=== PATIENT | female | born 1955 | race Caucasian/White ===

== ENCOUNTER → 2018-04-10 01:18 | Outpatient (CLI) | payer OTHER, SELFPAY ==
--- NOTE | 2018-04-10 10:10 | DI.REPORT_ITS ---
SYMPTOM/DIAGNOSIS: SCREENING FOR BREAST CANCER Z12.39 BILATERAL SCREENING MAMMOGRAM: Mammograms were interpreted according to the usual protocol including computer analysis with CAD system, tomosynthesis and C view imaging. Comparison is made with exams from 2012 through 2017. The breasts are composed of heterogeneously dense fibroglandular tissue, breast density category C. No suspicious masses or suspicious microcalcifications are seen. There has been no significant change. IMPRESSION: Category 1-C, negative mammogram. Yearly screening mammography is recommended. [facility] ASSESSMENT OF FINDINGS: Negative. Category 1. Patient will receive a letter notifying them of these results. Bi-RADS category C. The breasts are heterogeneously dense, which may obscure small masses.
== END ==
PROVIDERS: PCP Nurse Practitioner; Visit Provider Nurse Practitioner
DX: Z12.31 Encounter for screening mammogram for malignant neoplasm of breast (principal)
CPT/HCPCS: 77063; 77067

== ENCOUNTER → 2018-04-19 10:43 | Outpatient (REF) | payer OTHER, SELFPAY ==
--- NOTE | 2018-04-19 10:00 | ENDOMET_PTH ---
PATIENT: MAYELIN LEIGH LOC: [facility] U#:[id number] AGE/SX: 69/F ROOM: RE04/19/[address]: Charissa Colon NP : 1955 BED: DIS: SPEC #: [id number] RECD: 04/19/18 12:37 STATUS: TERESITA ROMAN #: [id number] ABBY: 04/19/18 10:[address]: Darlene ALONSO,Charissa DEPT: Surgical Specimen RECD BY: Tenisha Parker ENTERED: 04/19/18 12:38 SP TYPE: Endomet OTHR DR: Mary Kate Chatterjee Tissues: 1 - ENDOMETRIUM BX/ANNIETTE Procedures: GROSS AND MICRO LEVEL 4 Comments: [id number]
[2018-04-20 13:54] LABS: Chlamydia Result Negative; GC Result Negative; Specimen Description CERVIX
== END ==
LOC: LBN 10:43
PROVIDERS: PCP Nurse Practitioner; Visit Provider Nurse Practitioner Women's Health
DX: R10.9 Unspecified abdominal pain (principal); R31.9 Hematuria, unspecified; Z11.3 Encounter for screening for infections with a predominantly sexual mode of transmission; N95.0 Postmenopausal bleeding; N85.8 Other specified noninflammatory disorders of uterus
CPT/HCPCS: 87077; 87491; 87591; 88305; 87086; 87186

== ENCOUNTER 2018-04-27 08:41 | Emergency (ER) | payer OTHER, SELFPAY ==
[2018-04-27] VITALS (30 sets, daily range): BP systolic 118–133; BP diastolic 70–92; PULSE 67–94; RESP 8–22; TEMP 36.8–36.9; O2SAT 96–99
[2018-04-27] MEDS: Normal Saline Flush 10 ML SYR IVP (09:40)
[2018-04-27 09:58] LABS: Bilirubin Negative (Negative); Blood Large (Negative); Clarity Cloudy; Glucose Negative (Negative); Ketones Trace mg/dL (Negative); Leukocyte Esterase Negative (Negative); Nitrite Negative (Negative); Urobilinogen 0.2 EU/dL (Up TO 0.2); pH 6.5 (5-8)
[2018-04-27 09:59] LABS: HCT 42.7 % (36.0-46.0); HGB 14.5 g/dL (12.0-15.5); Mean Corpuscular Hemoglobin 32.4 pg (27.0-33.0); Mean Corpuscular Volume 95.5 fL (80-95); Mean Platelet Volume 9.2 fL (8.0-11.0); Platelet Count 262 x1000/uL (130-400); RBC 4.47 m/cumm (4.00-5.20); RBC Distribution Width 12.4 % (11.7-14.6); White Blood Cell Count 8.26 k/cumm (4.4-10.8)
[2018-04-27 10:03] LABS: BUN 11 mg/dL (7-18); CREATININE 0.65 mg/dL (0.55-1.02); Calcium 9.1 mg/dL (8.5-10.1); Chloride 106 mmol/L (98-107); Glucose 93 mg/dL (70-100); Potassium 3.5 mmol/L (3.5-5.1); Sodium 139 mmol/L (136-145)
[2018-04-27 10:04] LABS: Anion Gap 7.6 mmol/L (3-11); CO2 25.4 mmol/L (21.0-32.0)
[2018-04-27 10:17] LABS: RBC >50 (0-2); WBC Negative HPF (0-5)
[2018-04-27 10:18] LABS: Bacteria Negative HPF (Negative); Casts Negative LPF (Negative); Crystals Negative HPF (Negative); Epithelial Cells Negative HPF (Negative); Mucus Negative (Negative); Other Cells Negative (Negative)
[2018-04-27 10:23] LABS: C & S Indicated? No
--- NOTE | 2018-04-27 10:38 | DI.CT_ITS ---
SYMPTOMS/DIAGNOSIS: LT FLANK PAIN, HEMATURIA CT OF THE ABDOMEN AND PELVIS: Comparison is made with noncontrast CT dated . Images were performed from the lung bases through the ischial tuberosities after IV contrast. There is a tiny nonobstructing stone seen in the mid left kidney. There are several small renal cysts. There is no evidence of hydronephrosis of either kidney. No renal masses are identified. There is a mass in the left side of the bladder posteriorly measuring 2.2 cm in diameter. It is located lateral to the ureterovesical junction. No additional bladder abnormalities are seen. There is no bladder wall thickening. The uterus and ovaries appear normal. The lung bases are clear. The heart size is normal. The liver, gallbladder, spleen, adrenals and pancreas appear normal. The aorta shows mild calcification and is normal in diameter. There are mild degenerative changes of the lumbar spine. IMPRESSION: 2.2 cm mass of the left side of the bladder. No evidence of hydronephrosis. A tiny nonobstructing left renal stone as well as left renal cysts are identified.
--- NOTE | 2018-04-27 10:54 | NUR.NOTE ---
Nursing Note: Escorted to CT by Tech at 1055, via stretcher.
[2018-04-27] MEDS: Omnipaque 350 MG/ML 100 ML BTL IJ (11:10)
--- NOTE | 2018-04-27 11:16 | ED.GENADUL_ITS ---
Discharge Plan Discharge Details Chief Complaint: Urinary Clinical Impression: Bladder mass, Hematuria Primary Care Provider: Mary Kate Chatterjee ED Provider: Ingris Capone Disposition Patient Disposition: HOME Condition: Stable Home Meds and New Rx's Prescriptions: Continue ascorbic acid (vitamin C) [Vitamin C] 500 MG capsule, extended release 500 mg PO DAILY RF: 0 calcium carbonate-vitamin D3 1 EACH tablet 1 ea PO DAILY RF: 0 Atorvastatin Calcium 20 MG tablet 20 mg PO DAILY RF: 0 Discontinued aspirin [Aspir-81] 81 MG tablet,delayed release (DR/EC) 81 mg PO DAILY RF: 0 ciprofloxacin HCl [Cipro] 500 MG tablet 500 mg PO Q12H 7 Days Qty: 14 RF: 0 Discharge Instructions Instructions: Hematuria (ED) Additional Instructions: You should receive a call from urology within the next 24 hours regarding a follow-up appointment with urologist Dr. Porras next week. If you do not receive a call from urology by tomorrow afternoon, called the urology clinic at [phone]. Stop taking your aspirin and Cipro. Return to the emergency department any worsening or new concerning symptoms. Referrals: Oscar Porras MD [ [facility]IC[facility]] - (If you do not hear from urology by tomorrow afternoon, call the urology clinic [phone]) Discharge Data Discharge Physician: Ingris Capone Medical Decision Making MDM Narrative Medical decision making narrative: 62-year-old female history of hyperlipidemia and tobacco abuse who presents with hematuria with clots and burning left-sided flank pain ?9 days. [facility] had [facility] patient for the symptoms over the past week and initially had thought possibly postmenopausal bleeding and patient had an endometrial biopsy which was negative and ultimately the presumptive diagnosis was more likely urinary. She was also diagnosed with the [facility]TI by [facility] and was started on Cipro of which she has 1 day left. Patient was seen at [facility] ER last week for same and had a noncontrast CT which was negative. Vitals within normal limits. Abdomen soft and nontender. No CVA tenderness. Her main concern would be with patient's smoking history and hematuria, possible mass. Will repeat labs, urinalysis and a CT abdomen and pelvis with contrast for further evaluation. Patient is agreeable to plan. 1118 --CT abdomen and pelvis notes a 2 cm mass in the left bladder. Main concern would be a possible TCC. Will call urology for recommendations. Labs reviewed and large blood noted in urine but otherwise labs unremarkable. 1125 --discussed with Dr. Porras -patient will need a cystoscopy and possible resection. Recommend holding aspirin for 3 days. Patient can be discharged home and follow-up with urology next week. If she does not hear from urology by tomorrow, she can call them at the urology clinic [phone]. Lab results and urology discussed with Dr. Porras he agrees to stop her Cipro. Patient was informed of plan. She was informed to stop her aspirin and Cipro. Patient was instructed to return to the emergency department with any worsening or new concerning symptoms. Lab Data Lab Results 04/27/18 04/27/18 04/27/18 Range/Units 09:35 09:40 09:40 WBC 8.26 (4.4-10.8) k/cumm RBC 4.47 (4.00-5.20) m/cumm Hgb 14.5 (12.0-15.5) g/dL Hct 42.7 (36.0-46.0) % MCV 95.5 H (80-95) fL MCH 32.4 (27.0-33.0) pg MCHC 34.0 (32.0-36.0) g/dL RDW 12.4 (11.7-14.6) % Plt Count 262 (130-400) x1000/uL MPV 9.2 (8.0-11.0) fL Sodium 139 (136-145) mmol/L Potassium 3.5 (3.5-5.1) mmol/L Chloride 106 (98-107) mmol/L Carbon Dioxide 25.4 (21.0-32.0) mmol/L Anion Gap 7.6 (3-11) mmol/L BUN 11 (7-18) mg/dL Creatinine 0.65 (0.55-1.02) mg/dL Estimated GFR/1.73 m2 >= 60.00 (mL/min/1.73m2) Glucose 93 (70-100) mg/dL Calcium 9.1 (8.5-10.1) mg/dL Urine Color Red (Yellow) Urine Clarity Cloudy Urine pH 6.5 (5-8) Ur Specific Dale 1.010 (1.005-1.025) Urine Protein 100 H (Negative) mg/dL Urine Ketones Trace H (Negative) mg/dL Urine Blood Large H (Negative) Urine Nitrite Negative (Negative) Urine Bilirubin Negative (Negative) Urine Urobilinogen 0.2 (Up TO 0.2) EU/dL Ur Leukocyte Esterase Negative (Negative) Urine RBC >50 H (0-2) Urine WBC Negative (0-5) HPF Ur Epithelial Cells Negative (Negative) HPF Urine Crystals Negative (Negative) HPF Urine Bacteria Negative (Negative) HPF Urine Casts Negative (Negative) LPF Urine Mucus Negative (Negative) Urine Other Negative (Negative) Ur Culture Indicated? No Urine Glucose Negative (Negative) mg/dL HPI - General Adult General Mode of arrival: ambulatory . Date/Time Provider Initiated Documentation: 04/27/18 09:47 . Limitations to Documentation: no limitations . Information obtained by: patient . HPI Narrative: Patient is a 62year-old female history of hyperlipidemia and tobacco abuse who presents for hematuria with clots and burning left-sided flank pain for the past 9 days. Patient had [facility] been [facility] by [facility] throat was thought to be postmenopausal bleeding. She had an endometrial biopsy in the past week which was negative. Benita from [facility] came down to see patient here today and stated that she mainly thinks her problem is urinary. Patient was also seen at [place] ED 1 week ago for same complaint and had a CT abdomen and pelvis which was negative. Patient denies any vaginal or rectal bleeding. She states she has been noting bright red blood with clots in her urine. She denies dysuria, frequency or urgency. She denies fever or vomiting. She confirms that she does not have vaginal bleeding as she noted blood in her urine today and did a digital vaginal exam and there is no blood. Related Data Home Medications Medication Instructions Recorded Confirmed ascorbic acid (vitamin C) [Vitamin 500 mg PO DAILY 02/28/17 04/27/18 C] calcium carbonate-vitamin D3 1 ea PO DAILY 02/28/17 04/27/18 Atorvastatin Calcium 20 mg PO DAILY tab-cap 04/19/18 04/27/18 Allergies Allergy/AdvReac Type Severity Reaction Status Date / Time morphine AdvReac Intermediate Nausea Unverified 04/27/18 09:01 Sulfa (Sulfonamide AdvReac Intermediate Bloating Unverified 04/27/18 09:01 Antibiotics) General Stated Complaint: Urinary ANN MARIE: 3 Review of Systems Constitutional Denies fever(s), Denies lethargy and Denies weakness Eyes Patient Denies blurry vision ENT Denies sore throat and Denies throat swelling Cardiovascular Denies syncope, Denies edema and Denies dyspnea Respiratory Denies cough, Denies pain on inspiration, Denies pain with cough and Denies dyspnea Gastrointestinal Reports abdominal pain, Denies diarrhea, Reports nausea and Denies vomiting Genitourinary Denies abnormal vaginal bleeding, Reports hematuria, Denies urinary frequency, Denies dysuria, Reports flank pain (Left sided), Denies urinary incontinence, Denies urinary hesitancy, Denies urinary urgency and Denies vaginal discharge Musculoskeletal Denies back pain and Denies arthralgias Neurologic Denies confusion, Denies syncope and Denies weakness Psychiatric Denies confusion Allergic/Immunologic Denies throat swelling PFSH Social History Smoking/Tobacco Use Status: Current every day Exam Const General: cooperative and comfortable Orientation: alert and awake HENMT Head: normal to inspection General nose exam: external nose normal Face and sinus: normal facial exam Eyes Pupils: PERRL EOM: EOM intact bilaterally Neck Neck: normal visual inspection Resp Effort & Inspection: normal respiratory effort Auscultation: clear to auscultation bilaterally Cardio Rate: regular rate Rhythm: regular rhythm GI Inspection: normal to inspection Palpation: soft, no guarding, no hepatomegaly, no masses, no pulsatile masses, not rigid and nontender External Female Exam: no lesions Back/Spine/Pelvis Back: no CVA tenderness Skin General skin exam: no rashes or lesions noted Neuro General: alert and awake Extrem General: normal to inspection and no edema Psych Affect: normal affect Course Vital Signs Temperature 98.2 F 04/27/18 08:49 Pulse 82 04/27/18 08:49 Respiratory Rate 13 04/27/18 08:49 Blood Pressure 121/86 04/27/18 08:49 Pulse Oximetry 98 04/27/18 08:49 Temperature 98.2 F 04/27/18 08:49 Pulse 84 04/27/18 10:30 Respiratory Rate 13 04/27/18 10:31 Blood Pressure 132/87 04/27/18 10:30 Pulse Oximetry 96 04/27/18 10:31 Lab/Test Results Lab/Test Results: Laboratory Tests 04/27/18 04/27/18 04/27/18 09:35 09:40 09:40 WBC 8.26 RBC 4.47 Hgb 14.5 Hct 42.7 MCV 95.5 H MCH 32.4 MCHC 34.0 RDW 12.4 Plt Count 262 MPV 9.2 Sodium 139 Potassium 3.5 Chloride 106 Carbon Dioxide 25.4 Anion Gap 7.6 BUN 11 Creatinine 0.65 Estimated GFR/1.73 m2 >= 60.00 Glucose 93 Calcium 9.1 Urine Color Red Urine Clarity Cloudy Urine pH 6.5 Ur Specific Dale 1.010 Urine Protein 100 H Urine Ketones Trace H Urine Blood Large H Urine Nitrite Negative Urine Bilirubin Negative Urine Urobilinogen 0.2 Ur Leukocyte Esterase Negative Urine RBC >50 H Urine WBC Negative Ur Epithelial Cells Negative Urine Crystals Negative Urine Bacteria Negative Urine Casts Negative Urine Mucus Negative Urine Other Negative Ur Culture Indicated? No Urine Glucose Negative
--- NOTE | 2018-04-27 11:19 | NUR.NOTE ---
Nursing Note: Return to ER,from CT, with escort by Tech.
[2018-04-27] MEDS: Normal Saline 1,000 ML 1000 ML IV (11:20)
[2018-04-27] MEDS: Ketorolac 30 MG/ML VIAL IVP (11:28)
== END 2018-04-27 12:52 | disposition home or self-care (01) ==
PROVIDERS: Emergency Provider Physician Assistant; PCP Nurse Practitioner
DX: N32.89 Other specified disorders of bladder (principal); R31.0 Gross hematuria; F17.210 Nicotine dependence, cigarettes, uncomplicated
CPT/HCPCS: 36415; 80048; 85027; 96361; 96374; 99285; 74177; 81003; 81015; J1885; J3490

== ENCOUNTER 2018-05-01 13:03 | PSDC | payer OTHER, SELFPAY ==
[2018-05-01 13:15] VITALS: BP 133/84; PULSE 86; RESP 17; TEMP 36.4; O2SAT 98
[2018-05-01] MEDS: Lactated Ringers 1,000 ML 80 ML IV (13:52)
[2018-05-01] MEDS: Lidocaine 2% Jelly 6 ML SYR (14:42)
--- NOTE | 2018-05-01 14:54 | BLADDER_PTH ---
PATIENT: MAYELIN LEIGH LOC: [facility] U#:[id number] AGE/SX: 62/F ROOM: RE05/01/[address]: Oscar Porras MD : 1955 BED: DIS: 05/01/2018 SPEC #: [id number] RECD: 05/01/18 18:43 STATUS: TERESITA REQ #: [id number] ABBY: 05/01/18 14:[address]: Oscar Porras DEPT: Surgical Specimen RECD BY: Tenisha Parker ENTERED: 05/01/18 18:44 SP TYPE: Bladder OTHR DR: Mary Kate Chatterjee Tissues: 1 - BLADDER CURRETTINGS Procedures: GROSS AND MICRO LEVEL 5 Comments: [id number]
--- NOTE | 2018-05-01 15:10 | W.PM.DSUDISC ---
Discharge Plan Disposition Patient Disposition: HOME Discharge Details Reason For Visit: BLADDER MASS Attending Provider: Oscar Porras Primary Care Provider: Mary Kate Chatterjee Home Meds and New Rx's Prescriptions: No Action ascorbic acid (vitamin C) [Vitamin C] 500 MG capsule, extended release 500 mg PO DAILY RF: 0 Atorvastatin Calcium 20 MG tablet 20 mg PO DAILY RF: 0 Discharge Instructions Instructions: Urinary Leg Bag (GEN), Cleveland Catheter Placement and Care (DC) Additional Instructions: Cleveland to leg bag for @ 5 days Followup Tuesday or Tuesday for catheter removal and pathology results OK to shower with catheter in place Activity:: no lifting over 10 pounds for 1 week Discharge Data Discharge Physician: Oscar Porras
--- NOTE | 2018-05-01 15:14 | W.PM.DSUDISC ---
Discharge Plan Disposition Patient Disposition: HOME Condition: Stable Discharge Details Reason For Visit: BLADDER MASS Attending Provider: Oscar Porras Primary Care Provider: Mary Kate Chatterjee Home Meds and New Rx's Prescriptions: New tramadol 50 mg tablet 50 mg PO Q6H PRN (Reason: pain) Qty: 20 RF: 0 oxybutynin chloride 5 mg tablet 5 mg PO TID PRN (Reason: spasm) Qty: 14 RF: 0 Continue ascorbic acid (vitamin C) [Vitamin C] 500 MG capsule, extended release 500 mg PO DAILY RF: 0 Atorvastatin Calcium 20 MG tablet 20 mg PO DAILY RF: 0 Discharge Instructions Instructions: Cleveland Catheter Placement and Care (DC), Urinary Leg Bag (GEN) Additional Instructions: Cleveland to leg bag for @ 5 days Followup Tuesday or Tuesday for catheter removal and pathology results OK to shower with catheter in place Activity:: lifting over 10 pounds for 1 week Diet:: no restrictions Discharge Data Discharge Physician: Oscar Porras
[2018-05-01 15:35] VITALS: BP 138/86; PULSE 76; RESP 16; TEMP 37.3; O2SAT 97
[2018-05-01] MEDS: Oxybutynin 5 MG TAB PO (15:38)
[2018-05-01] MEDS: Phenazopyridine 200 MG TAB PO (15:38)
[2018-05-01] MEDS: traMADol 50 MG TAB PO (15:38)
--- NOTE | 2018-05-01 16:10 | ROE_ITS ---
DATE OF PROCEDURE: May 01, 2018 PREOPERATIVE DIAGNOSIS: Bladder mass. POSTOPERATIVE DIAGNOSIS: Same with pathology pending. PROCEDURE: Cystoscopy, clot evacuation, transurethral resection of bladder tumor. SURGEON: Oscar Porras M.D. ANESTHESIA: Monitored Anesthesia Care with local. COMPLICATIONS: None. HISTORY: This is a 62-year-old woman who has had intermitted gross hematuria with clots over the pas t few weeks. Initially she was found to have enterococcus in her urine so she was treated for a UTI. She continued to have bleeding so she had a CT scan with contrast, which demonstrated a mass in the left side of her bladder. She presents now for transurethral resection. OPERATIVE REPORT: The patient was brought to the operating room on 05/01/18. After being given monit ored anesthesia care she was placed in the dorsal lithotomy position. Her genitalia was prepped and draped. 2% Xylocaine jelly was instilled into the urethra to act as a local anesthetic. A 24 Lithuanian resectoscope sheath was passed through the urethra into the bladder. The bladder was ins pected with the 30-degree lens. There was a large amount of clot within the bladder on initial passage of the scope. These clots wer e evacuated. We were then able to get a good view of the remainder of the bladder. Just behind the left ureteral orifice there was a papillary lesion consistent with a bladder tumor. This lesion appeared to be attached to the mucosa by a narrow stalk. It was not broad-based. Using bipolar cautery we resected the visible tumor and sent it for pathology. The base of the tumor was cauterized using the coagulation current. A small abnormality was seen on the right side just b ehind the ureteral orifice. This area did not appear as papillary as the left-sided lesion, but we w ent ahead and took a transurethral biopsy of this area as well. Because of the depth of our resection, we elected not to instill mitomycin-C into the bladder. We pl aced a 16 Lithuanian Cleveland catheter through the urethra into the bladder. The catheter balloon was infla guerrero with 10 cc's of sterile water and the catheter was hooked to gravity drainage. She tolerated this procedure well with no complications.
[2018-05-01 16:18] VITALS: BP 112/76; PULSE 82; RESP 16; TEMP 37.4; O2SAT 98
== END 2018-05-01 16:50 | disposition home or self-care (01) ==
PROVIDERS: PCP Nurse Practitioner; Visit Provider Urology
PROC: 0TBB8ZZ Excision of Bladder, Via Natural or Artificial Opening Endoscopic (ICD-10-PCS; CPT 51720; principal; 2018-05-01 15:00)
DX: C67.6 Malignant neoplasm of ureteric orifice (principal); R31.0 Gross hematuria
CPT/HCPCS: 51720; 52234; 88307; J0690; J1100; J1885; J2250; J2405; J3010

== ENCOUNTER 2018-06-07 15:55 | Outpatient (REF) | payer OTHER, SELFPAY ==
--- NOTE | 2018-06-07 15:35 | PAPFT_PTH ---
PATIENT: MAYELIN LEIGH LOC: [facility] U#:[id number] AGE/SX: 62/F ROOM: RE06/07/[address]: Charissa Colon NP : 1955 BED: DIS: 06/07/2018 SPEC #: [id number] RECD: 06/07/18 18:05 STATUS: TERESITA ROMAN #: [id number] ABBY: 06/07/18 15:[address]: Charissa Colon NP DEPT: [facility] Cytology RECD BY: Tenisha Parker ENTERED: 06/07/18 18:06 SP TYPE: PAPFT OTHR DR: Mary Kate Chatterjee Tissues: 1 - CX/ENDOCX FOR PAP SMEARS Procedures: PAP THIN PREP/UVM Screening HPV DNA PROBE Comments: [id number]
== END 2018-06-07 16:15 ==
LOC: LBN 15:55
PROVIDERS: PCP Nurse Practitioner; Visit Provider Nurse Practitioner Women's Health
DX: Z12.4 Encounter for screening for malignant neoplasm of cervix (principal); Z11.51 Encounter for screening for human papillomavirus (HPV)
CPT/HCPCS: 88142; 87624

== ENCOUNTER 2018-08-10 06:01 | Day surgery (SDC) | payer OTHER, SELFPAY ==
[2018-08-10 06:19] VITALS: BP 118/80; PULSE 92; RESP 20; TEMP 36.8; O2SAT 97
--- NOTE | 2018-08-10 06:34 | W.PM.HP.N ---
Date of service: 08/10/18 Time of Service: 06:34 Assessment and Plan (1) Neoplasm of bladder: Current visit: No Status: Acute Cystoscopy with possible TURBT. If a tumor is identified, we will plan to instill Mitomycin C after the procedure History of Present Illness Chief Complaint: BlADDER CANCER Narrative: This is a 62 year old woman who has been identified as having noninvasive urothelial cell carcinoma of the bladder on previous cystoscopy/TURBT. She comes in now for surveillance cystoscopy and possible TURBT. She has no gross hematuria at this point. Review of Systems Constitutional Denies chills and Denies fever(s) Eyes Denies change in vision Cardiovascular Denies chest pain, Denies syncope and Denies palpitations Respiratory Denies cough and Denies wheezing Gastrointestinal Denies nausea and Denies vomiting Musculoskeletal Reports arthralgias Comments: wound infection (hand) after recent surgery Neurologic Denies confusion and Denies syncope Psychiatric Denies confusion Endocrine Denies palpitations Allergic/Immunologic Denies wheezing PFSH Social History Smoking/Tobacco Use Status: Current every day alcohol intake: current alcohol intake frequency: 0-2 drinks per day details: weekends substance use type: marijuana History History 4 Para 0 Hx # Term Pregnancies Multiple births Hx # Pregnancies Ectopic pregnancies AB induced Hx Number of Living Children AB spontaneous Meds Home Medications Medication Instructions Recorded Confirmed Type ascorbic acid (vitamin C) [Vitamin 500 mg PO DAILY 02/28/17 08/10/18 History C] Atorvastatin Calcium 20 mg PO DAILY tab-cap 04/19/18 08/10/18 History acetaminophen 325 mg PO PRN PRN 08/10/18 08/10/18 History cephalexin 250 mg PO QID 08/10/18 08/10/18 History Allergies Allergy/AdvReac Type Severity Reaction Status Date / Time diphenhydramine AdvReac Intermediate Other (See Unverified 08/10/18 06:30 Comment) latex AdvReac Intermediate Skin Rash Verified 08/10/18 06:30 morphine AdvReac Intermediate Nausea Unverified 08/10/18 06:30 Sulfa (Sulfonamide AdvReac Intermediate Bloating Unverified 08/10/18 06:30 Antibiotics) Exam Const General: cooperative, comfortable and no acute distress Neck Neck: supple Resp Auscultation: clear to auscultation bilaterally Cardio Rate: regular rate Rhythm: regular rhythm GI Palpation: soft and no masses Skin Lesions: lesion noted Other: surgical incision right index finger Neuro General: alert, awake and oriented x3 Results Last Vital Signs Temp 36.8 C 08/10/18 06:19 Pulse 92 H 08/10/18 06:19 Resp 20 08/10/18 06:19 BP 118/80 08/10/18 06:19 Pulse Ox 97 08/10/18 06:19
[2018-08-10] MEDS: Ciprofloxacin 250 MG TAB PO (06:37)
[2018-08-10] MEDS: Lactated Ringers 1,000 ML 80 ML IV (06:52)
--- NOTE | 2018-08-10 07:45 | BLADDER_PTH ---
PATIENT: MAYELIN LEIGH LOC: [facility] U#:[id number] AGE/SX: 62/F ROOM: RE08/10/[address]: Oscar Porras MD : 1955 BED: DIS: 08/10/2018 SPEC #: [id number] RECD: 08/10/18 12:47 STATUS: TERESITA REQ #: [id number] ABBY: 08/10/18 07:[address]: Oscar Porras DEPT: Surgical Specimen RECD BY: Tenisha Parker ENTERED: 08/10/18 12:48 SP TYPE: Bladder OTHR DR: Mary Kate Chatterjee Tissues: 1 - BLADDER BIOPSY Procedures: GROSS AND MICRO LEVEL 4 Comments: [id number]
[2018-08-10] MEDS: Lidocaine 2% Jelly 6 ML SYR (07:55)
--- NOTE | 2018-08-10 08:06 | W.PM.DSUDISC ---
Discharge Plan Disposition Patient Disposition: HOME Condition: Stable Discharge Details Reason For Visit: BLADDER CA Attending Provider: Oscar Porras Primary Care Provider: Mary Kate Chatterjee Home Meds and New Rx's Prescriptions: No Action ascorbic acid (vitamin C) [Vitamin C] 500 MG capsule, extended release 500 mg PO DAILY RF: 0 Atorvastatin Calcium 20 MG tablet 20 mg PO DAILY RF: 0 acetaminophen 325 mg Tablet 325 mg PO PRN PRNRF: 0 cephalexin 250 mg Capsule 250 mg PO QID RF: 0 Discharge Instructions Additional Instructions: Cleveland catheter in place with Mitomycin C in bladder and catheter clamped - unclamp cather after @ 1 hour or prn discomfort. Once bladder is drained, may remove catheter and discharge pt Will need F/U in about 2 weeks to review path results (can even be by phone if pt prefers) Activity:: Activity as Tolerated Diet:: As Tolerated Discharge Orders Discharge Orders: Discharge Order (Routine); Ordered 08/10/18 Ordered By: Oscar Porras DS: Diagnosis Discharge Diagnosis (1) Neoplasm of bladder: Status: Acute
[2018-08-10] MEDS: Phenazopyridine 200 MG TAB PO (08:32)
[2018-08-10 08:33] VITALS: BP 98/69; PULSE 71; RESP 16; TEMP 36; O2SAT 96
--- NOTE | 2018-08-10 16:49 | ROE_ITS ---
DATE OF OPERATION: August 10, 2018 PREOPERATIVE DIAGNOSIS: Bladder cancer. POSTOPERATIVE DIAGNOSIS: Bladder cancer, with pathology pending. PROCEDURE: Cystoscopy, transurethral resection of bladder tumor, installation of mitomycin-C into th e bladder. SURGEON: Oscar Porras M.D. ANESTHESIA: MAC with local. COMPLICATIONS: None. HISTORY: This is a 62-year-old woman who has a history of noninvasive urothelial cell carcinoma of t he bladder. She comes in for surveillance cystoscopy. OPERATIVE REPORT: The patient was brought to the Operating Room on 08/10/18. She was given preopera tive antibiotics. After successful induction of monitored anesthesia care, she was placed in the dorsal lithotomy posit ion. Genitalia was prepped and draped. Two percent xylocaine jelly was then instilled into the uret hra. A 24 Arabic resectoscope sheath was passed through the urethra into the bladder. The bladder was the n inspected using a 30-degree lens and a visual obturator. The right ureteral orifice appeared normal. Behind the right orifice there was a scar from her previ ous resection. No papillary or nodular lesions were seen on the right side. On the left side, however, there were two small papillary lesions. The smaller one was just in front of the left ureteral orifice. This one measured less than 1 cm. A 2-cm lesion was seen over toward the left lateral wall of the bladder. We then used an Patterson resectoscope and a cutting loop to cauterize the smaller tumor and perform t ransurethral resection on the larger tumor. We sent the tumor off to pathology for chemical analysis . We cauterized the base of the tumor. We then passed a 16 Arabic Cleveland catheter through the urethra into the bladder. The catheter balloon was inflated with 10 cc of sterile water. The bladder was drained. A total of 40 mg of mitomycin-C mixed in 20 cc of water was then instilled into the bladder. The catheter was clamped, leaving the mitomycin-C in placed. The patient tolerated this procedure well. There were no complications.
== END 2018-08-10 09:12 | disposition home or self-care (01) ==
PROVIDERS: PCP Nurse Practitioner; Visit Provider Urology
PROC: 0TJB8ZZ Inspection of Bladder, Via Natural or Artificial Opening Endoscopic (ICD-10-PCS; CPT 52000; principal; 2018-08-10 07:30)
PROC: 0TBB8ZZ Excision of Bladder, Via Natural or Artificial Opening Endoscopic (ICD-10-PCS; CPT 52234; 2018-08-10 07:30)
DX: C67.6 Malignant neoplasm of ureteric orifice (principal); C67.2 Malignant neoplasm of lateral wall of bladder; F17.210 Nicotine dependence, cigarettes, uncomplicated
CPT/HCPCS: 52234; 88305; NC; J1100; J1885; J2250; J2405; J3010; J9280

== ENCOUNTER 2018-12-14 06:02 | Day surgery (SDC) | payer OTHER, SELFPAY ==
[2018-12-14] VITALS (7 sets, daily range): BP systolic 71–129; BP diastolic 35–85; PULSE 64–83; RESP 10–19; TEMP 36–36.7; O2SAT 95–99
--- NOTE | 2018-12-14 06:49 | W.PM.HP.N ---
Date of service: 12/14/18 Time of Service: 06:49 Assessment and Plan (1) Bladder cancer: Current visit: Yes Status: Chronic For surveillance cystoscopy and possible TURBT History of Present Illness Chief Complaint: Bladder cancer Narrative: This is a 62-year-old woman who has a history of urothelial cell carcinoma the bladder. She comes in for surveillance cystoscopy and possible transurethral resection of any visible bladder tumor. Her last occurrence was 08/08. Her pathology showed low grade noninvasive urothelial cell carcinoma. Review of Systems Review of Systems No fevers or chills No vision change or dysphasia No diabetes or thyroid No hemoptysis No chest pain or palpitations No nausea/vomiting No seizures, strokes or peripheral neuropathy No bleeding disorders or anemia No gout. Arthralgia and myalgia. 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 Pt states she has stopped drinking approx 2 months ago. Do you feel safe at home: Yes Additional Social history: Pt states she has no relationship. History History 4 Para 0 Hx # Term Pregnancies Multiple births Hx # Pregnancies Ectopic pregnancies AB induced Hx Number of Living Children AB spontaneous Meds Home Medications Medication Instructions Recorded Confirmed Type ascorbic acid (vitamin C) [Vitamin 500 mg PO DAILY 02/28/17 12/14/18 History C] Atorvastatin Calcium 20 mg PO DAILY tab-cap 04/19/18 12/14/18 History ibuprofen 400 mg PO PRN PRN 12/12/18 12/14/18 History oxycodone-acetaminophen 1 tab PO Q8H PRN 12/14/18 12/14/18 History Allergies Allergy/AdvReac Type Severity Reaction Status Date / Time diphenhydramine AdvReac Intermediate Other (See Unverified 12/12/18 17:03 Comment) latex AdvReac Intermediate Skin Rash Verified 12/12/18 17:03 morphine AdvReac Intermediate Nausea Unverified 12/12/18 17:03 Sulfa (Sulfonamide AdvReac Intermediate Bloating Unverified 12/12/18 17:03 Antibiotics) Exam Const General: cooperative and anxious Neck Neck: supple Thyroid: no masses Resp Auscultation: clear to auscultation bilaterally Cardio Rate: regular rate Rhythm: regular rhythm GI Palpation: soft and no masses Neuro General: alert, awake and oriented x3 Results Last Vital Signs Temp 36.7 C 12/14/18 06:34 Pulse 83 12/14/18 06:34 Resp 16 12/14/18 06:34 BP 109/72 12/14/18 06:34 Pulse Ox 96 12/14/18 06:34
[2018-12-14] MEDS: Lactated Ringers 1,000 ML 80 ML IV (06:53)
[2018-12-14] MEDS: Lidocaine 2% Jelly 6 ML SYR (07:52)
--- NOTE | 2018-12-14 07:55 | SOFT_PTH ---
PATIENT: MAYELIN LEIGH LOC: [facility] U#:[id number] AGE/SX: 62/F ROOM: RE12/14/[address]: Oscar Porras MD : 1955 BED: DIS: 12/14/2018 SPEC #: [id number] RECD: 12/14/18 09:23 STATUS: TERESITA REKarie #: [id number] ABBY: 12/14/18 07:[address]: Oscar Porras DEPT: Surgical Specimen RECD BY: Michelle Abarca ENTERED: 12/14/18 09:26 SP TYPE: SOFT OTHR DR: Rajesh Cruz Tissues: 1 - SOFT TISSUE MASS(BX SIMPLE) Procedures: GROSS AND MICRO LEVEL 4 Comments: [id number]
--- NOTE | 2018-12-14 08:03 | W.PM.DSUDISC ---
Discharge Plan Disposition Patient Disposition: HOME Condition: Stable Discharge Details Attending Provider: Oscar Porras Primary Care Provider: Rajesh Cruz Home Meds and New Rx's Prescriptions: New tramadol 50 mg tablet 50 mg PO Q8H PRN (Reason: pain) Qty: 20 RF: 0 No Action ascorbic acid (vitamin C) [Vitamin C] 500 MG capsule, extended release 500 mg PO DAILY RF: 0 Atorvastatin Calcium 20 MG tablet 20 mg PO DAILY RF: 0 ibuprofen 400 mg Tablet 400 mg PO PRN PRNRF: 0 oxycodone-acetaminophen 5-325 mg Tablet 1 tab PO Q8H PRNRF: 0 Discharge Instructions Additional Instructions: F/U 1 to 2 weeks to review pathology results Activity:: Activity as Tolerated Diet:: As Tolerated Discharge Orders Discharge Orders: Discharge Order (Routine); Ordered 12/14/18 Ordered By: Oscar Porras DS: Diagnosis Discharge Diagnosis (1) Bladder cancer: Status: Chronic
[2018-12-14] MEDS: traMADol 50 MG TAB PO (08:58)
[2018-12-14] MEDS: Phenazopyridine 200 MG TAB PO (08:58)
--- NOTE | 2018-12-15 06:51 | ROE_ITS ---
REPORT OF OPERATIVE PROCEDURE DATE OF PROCEDURE December 14, 2018 PREOPERATIVE DIAGNOSIS Bladder cancer. POSTOPERATIVE DIAGNOSIS Bladder cancer. PROCEDURES Cystoscopy, transurethral resection of small bladder lesion. SURGEON Oscar Porras M.D. ANESTHESIA MAC with local. COMPLICATIONS None. ESTIMATED BLOOD LOSS Minimal. HISTORY This is a 62-year-old woman who has a history of urothelial cell carcinoma of the bladder. Her previous tumors have been low grade and noninvasive. She is not willing to have surveillance cyst oscopy in the office. She presents for surveillance cystoscopy and possible transurethral resection. DESCRIPTION OPERATIVE PROCEDURE The patient was brought to the Operating Room on 12/14/2018. After being given Monitored Anesthesia Ca re, she was placed in the dorsal lithotomy position. Her genitalia was prepped and draped. 2% Xylocai ne jelly was then instilled into the urethra to act as a local anesthetic. A #24-Tanzanian resectoscope sheath was passed through the urethra into the bladder. We used the visual obturator to inspect the urethra and bladder. The right ureteral orifice appeared normal. The left orifice was slightly scarred from a previous res ection. There was white scaring on the left posterior bladder wall behind the ureteral orifice. Adjacent to the orifice, just medial to the orifice, there was a mounded-up small nodular lesion. The re was a very small papillary component at the very apex of the mound. This area measured less than 2 centimeters in largest dimension. No additional papillary or nodular lesions were seen throughout th e remainder of the bladder. We then utilized bipolar cautery and Patterson resectoscope to remove the abnormal area. We resected d own until muscle fiber was identified. We then cauterized the base of the resection site. The resected tissue was evacuated and sent to pathology for permanent section. Because it was not kellee ar that this was a urothelial cell tumor, we elected not to place mitomycin C into the bladder. The patient tolerated the procedure well. There were no complications. She was taken to the outpatien t are in stable condition. CC: Rajesh Cruz D.O.
== END 2018-12-14 10:00 | disposition home or self-care (01) ==
PROVIDERS: PCP Family Medicine; Visit Provider Urology
PROC: 0TBB8ZZ Excision of Bladder, Via Natural or Artificial Opening Endoscopic (ICD-10-PCS; CPT 52234; principal; 2018-12-14 07:30)
DX: C67.9 Malignant neoplasm of bladder, unspecified (principal); Z08 Encounter for follow-up examination after completed treatment for malignant neoplasm
CPT/HCPCS: 52234; 88305; NC; 88307; J1100; J1885; J2250; J2405; J3010

== ENCOUNTER 2019-04-05 06:10 | Day surgery (SDC) | payer OTHER, SELFPAY ==
[2019-04-05 06:13] VITALS: BP 117/76; PULSE 84; RESP 16; TEMP 36.6; O2SAT 98
[2019-04-05 06:54] LABS: Bilirubin Negative (Negative); Blood Negative (Negative); Clarity Cloudy (Clear); Glucose Negative (Negative); Ketones Negative (Negative); Leukocyte Esterase Negative (Negative); Nitrite Negative (Negative); Specific Gravity 1.015 (1.005-1.025); Urobilinogen 0.2 EU/dL (Up TO 0.2); pH 8.5 (5-8)
--- NOTE | 2019-04-05 07:00 | W.PM.HP.N ---
Date of service: 04/05/19 Time of Service: 07:00 Assessment and Plan (1) Bladder cancer: Current visit: No Status: Chronic She presents for her surveillance cystoscopy. If any visible tumor is identified, we will go ahead and do a transurethral resection today. If tumor is visible, and if mitomycin is available, we will go ahead and instill chemotherapy and her bladder right after her resection. History of Present Illness Chief Complaint: Bladder cancer Narrative: This is a 63-year-old woman who has a history of low-grade noninvasive urothelial cell carcinoma of the bladder. She presents for surveillance cystoscopy and possible transurethral resection. She is not seeing any gross hematuria. She does have lower abdominal discomfort and frequency. We were concerned about a urinary tract infection, but her urinalysis from this morning was reassuring. She continues to smoke cigarettes daily. Review of Systems Review of Systems No fevers or chills No vision change or dysphasia No diabetes or thyroid No shortness of breath, cough or hemoptysis No chest pain or palpitations c/o chronic abdominal pain. Due for colonoscopy. c/o hemorrhoids No seizures, strokes. c/o numbness in the left foot. No bleeding disorders or anemia No gout. Chronic back pain PFSH Social History Smoking/Tobacco Use Status: Current every day Tobacco Type: cigarettes Alcohol Intake: former Details: weekends Drug use: Daily Substance use type: marijuana Details: uses marijuana nightly. Do you feel safe at home: Yes Additional Social history: Pt states she has no relationship. History History 4 Para 0 Hx # Term Pregnancies Multiple births Hx # Pregnancies Ectopic pregnancies AB induced Hx Number of Living Children AB spontaneous Meds Home Medications Medication Instructions Recorded Confirmed Type ascorbic acid (vitamin C) [Vitamin 500 mg PO DAILY 02/28/17 04/05/19 History C] Atorvastatin Calcium 20 mg PO DAILY tab-cap 04/19/18 04/05/19 History ibuprofen 400 mg PO PRN PRN 12/12/18 04/05/19 History aspirin 81 mg PO DAILY 04/03/19 04/05/19 History cholecalciferol (vitamin D3) 600 unit PO DAILY 04/03/19 04/05/19 History [Vitamin D3] Allergies Allergy/AdvReac Type Severity Reaction Status Date / Time diphenhydramine AdvReac Intermediate Other (See Unverified 04/05/19 06:24 Comment) latex AdvReac Intermediate Skin Rash Verified 04/05/19 06:24 morphine AdvReac Intermediate Nausea Unverified 04/05/19 06:24 Sulfa (Sulfonamide AdvReac Intermediate Bloating Unverified 04/05/19 06:24 Antibiotics) Exam Narrative Exam Narrative: She is in no current distress. She is a bit nervous, but this is her baseline. Her vital signs documented elsewhere Chest wall motion is normal. Lungs show decreased breath sounds at the bases Cardiac exam shows a regular rate and rhythm Her abdomen is soft with no masses. There is diffuse tenderness but no guarding or rebound tenderness. There is no edema in the lower extremities. She is awake, alert and oriented. Results Labs Laboratory Results - last 24 hr 04/05/19 06:42 Urine Color Yellow Urine Clarity Cloudy Urine pH 8.5 H Ur Specific Parker 1.015 Urine Protein Negative Urine Ketones Negative Urine Blood Negative Urine Nitrite Negative Urine Bilirubin Negative Urine Urobilinogen 0.2 Ur Leukocyte Esterase Negative Urine Glucose Negative Last Vital Signs Temp 36.6 C 04/05/19 06:13 Pulse 84 04/05/19 06:13 Resp 16 04/05/19 06:13 BP 117/76 04/05/19 06:13 Pulse Ox 98 04/05/19 06:13
[2019-04-05] MEDS: Lactated Ringers 1,000 ML 80 ML IV (07:19)
--- NOTE | 2019-04-05 07:45 | BLADDER_PTH ---
PATIENT: MAYELIN LEIGH LOC: [facility] U#:[id number] AGE/SX: 63/F ROOM: RE04/05/[address]: Oscar Porras MD : 1955 BED: DIS: 04/05/2019 SPEC #: [id number] RECD: 04/05/19 12:42 STATUS: TERESITA REKarie #: [id number] ABBY: 04/05/19 07:[address]: Oscar Porras DEPT: Surgical Specimen RECD BY: Tenisha Parker ENTERED: 04/05/19 12:43 SP TYPE: Bladder OTHR DR: Rajesh Cruz Tissues: 1 - BLADDER BIOPSY Procedures: GROSS AND MICRO LEVEL 4 Comments: [id number]
--- NOTE | 2019-04-05 07:48 | W.PM.DSUDISC ---
Discharge Plan Disposition Patient Disposition: HOME Condition: Stable Discharge Details Reason For Visit: Bladder tumor Attending Provider: Oscar Porras Primary Care Provider: Rajesh Cruz Home Meds and New Rx's Prescriptions: No Action ascorbic acid (vitamin C) [Vitamin C] 500 MG capsule, extended release 500 mg PO DAILY RF: 0 Atorvastatin Calcium 20 MG tablet 20 mg PO DAILY RF: 0 ibuprofen 400 mg Tablet 400 mg PO PRN PRNRF: 0 aspirin 81 mg Tablet,Delayed Release (Dr/Ec) 81 mg PO DAILY RF: 0 cholecalciferol (vitamin D3) [Vitamin D3] 400 unit Capsule 600 unit PO DAILY RF: 0 Discharge Instructions Additional Instructions: No straining/lifting over 20 pounds for 24 to 48 hours F/U to review surgical pathology Activity:: see above Shower/Bathe:: 24 hours Diet:: As Tolerated Discharge Orders Discharge Orders: Discharge Order (Routine); Ordered 04/05/19 Ordered By: Oscar Porras DS: Diagnosis Discharge Diagnosis (1) Bladder cancer: Status: Chronic
[2019-04-05] MEDS: Lidocaine 2% Jelly 6 ML SYR (07:56)
[2019-04-05 08:32] VITALS: BP 135/86; PULSE 68; RESP 16; TEMP 36.2; O2SAT 99
--- NOTE | 2019-04-06 09:20 | ROE_ITS ---
DATE OF PROCEDURE: April 05, 2019 PREOPERATIVE DIAGNOSIS: Bladder cancer. POSTOPERATIVE DIAGNOSIS: Bladder cancer. PROCEDURE: Cystoscopy with transurethral resection of bladder tumor. SURGEON: Oscar Porras M.D. ANESTHESIA: General. COMPLICATIONS: None. HISTORY: This is a 63-year-old woman who has a history of low-grade, noninvasive urothelial cell car cinoma of the bladder. Six months ago she had a lesion that was resected. The lesion was identified as having low malignant potential. She presents now for a surveillance cystoscopy. OPERATIVE REPORT: The patient was brought to the Operating Room on 04/05/19. After successful induct ion of general anesthesia she was placed in the dorsal lithotomy position. Her genitalia was prepped and draped sterilely. A 24 Tongan rigid cystoscope was passed through the urethra into the bladder. The bladder was inspec guerrero using a 30-degree lens. The right ureteral orifice appeared normal. The left hemitrigone showed a papillary lesion just behi nd the ureteral orifice. The papillary lesion appeared similar to the previously lesions we had rese cted. No additional papillary lesions were seen. We utilized an [employer] resectoscope to remove the visible tumor, as well as some muscle beneath the lesion. All resected tissue was evacuated and sent to Pathology for permanent section. Because of the depth of the resection we elected not to place intravesical mitomycin. The patient tolerated the procedure well. There were no complications.
== END 2019-04-05 08:42 | disposition home or self-care (01) ==
PROVIDERS: PCP Family Medicine; Visit Provider Urology
PROC: 0TBB8ZZ Excision of Bladder, Via Natural or Artificial Opening Endoscopic (ICD-10-PCS; CPT 52224; principal; 2019-04-05 07:30)
DX: C67.0 Malignant neoplasm of trigone of bladder (principal)
CPT/HCPCS: 52224; 88305; NC; 81003; J2250; J3010

== ENCOUNTER 2019-07-05 10:09 | Outpatient (REF) | payer BC, SELFPAY ==
--- NOTE | 2019-07-05 09:30 | PAPFT_PTH ---
PATIENT: MAYELIN LEIGH LOC: [facility] U#:[id number] AGE/SX: 63/F ROOM: RE07/05/[address]: JULIET Juarez : 1955 BED: DIS: 07/05/2019 SPEC #: [id number] RECD: 07/05/19 12:34 STATUS: TERESITA REKarie #: [id number] ABBY: 07/05/19 09:[address]: Sailaja Araiza DEPT: [facility] Cytology RECD BY: Tenisha Parker ENTERED: 07/05/19 12:35 SP TYPE: PAPFT OTHR DR: Rajesh Cruz Tissues: 1 - CX/ENDOCX FOR PAP SMEARS Procedures: PAP THIN PREP/UVM Screening HPV DNA PROBE Comments: [id number]
== END 2019-07-05 10:29 ==
LOC: LBN 10:09
PROVIDERS: PCP Family Medicine; Visit Provider Nurse Practitioner Family
DX: Z12.4 Encounter for screening for malignant neoplasm of cervix (principal); Z11.51 Encounter for screening for human papillomavirus (HPV)
CPT/HCPCS: 88142; 87624

== ENCOUNTER 2019-08-09 06:12 | Day surgery (SDC) | payer BC, SELFPAY ==
[2019-08-09 06:37] VITALS: BP 117/74; PULSE 86; RESP 18; TEMP 36.8; O2SAT 95
--- NOTE | 2019-08-09 06:54 | W.PM.HP.N ---
Date of service: 08/09/19 Time of Service: 06:54 Assessment and Plan Assessment and plan (1) Bladder cancer: Status: Chronic Assessment and plan: For surveillance cystoscopy. We will be prepared to resect or biopsy and fulgurate any visible tumor. If a tumor is identified, we will be prepared to instill mitomycin-C into the bladder after the resection. History of Present Illness History of Present Illness Chief Complaint: Bladder cancer Narrative: This is a 63 year old woman who has a history of noninvasive urothelial cell carcinoma of the bladder. She has been treated with cystoscopy, TURBT and intravesical gemcibabine treatments. She presents for surveillance cystoscopy, possible TURBT and possible Mitomycin C into the bladder (if a tumor is identified). Review of Systems Narrative: No fevers or chills No vision change or dysphasia No diabetes or thyroid No sputum production or hemoptysis. C/O chronic cough No chest pain or palpitations C/O left upper quadrant pain intermittently. She believes it may be her spleen. No nausea, vomiting, hepatitis, ulcers, jaundice, diarrhea or constipation No seizures, strokes or peripheral neuropathy No bleeding disorders or anemia No gout PFSH Family History (Updated 07/05/19 @ 09:54 by Sailaja Araiza NP) Father COPD (chronic obstructive pulmonary disease) Mother Brain aneurysm Social History (Updated 07/05/19 @ 09:29 by Shirley Live RN) Smoking/Tobacco Use Status: Current every day Tobacco Type: cigarettes Years smoked: 45 Alcohol Intake: former Details: weekends Drug use: Daily Substance use type: marijuana Details: Pt states edibles &/or smoke nightly. 08.09.19 edibles last used 08.08.19. Seatbelt use: always Do you feel safe at home: Yes Additional Social history: Pt states she has no relationship. History History 4 Para 0 Hx # Term Pregnancies Multiple births Hx # Pregnancies Ectopic pregnancies AB induced Hx Number of Living Children AB spontaneous Meds Home Medications and Allergies Home Medications Medication Instructions Recorded Confirmed Type ascorbic acid (vitamin C) [Vitamin 500 mg PO DAILY 02/28/17 08/09/19 History C] Atorvastatin Calcium 20 mg PO DAILY tab-cap 04/19/18 08/09/19 History ibuprofen 400 mg PO PRN PRN 12/12/18 08/09/19 History aspirin 81 mg PO DAILY 04/03/19 08/09/19 History cholecalciferol (vitamin D3) 600 unit PO DAILY 04/03/19 08/09/19 History [Vitamin D3] calcium carbonate 500 mg calcium 1,000 mg PO DAILY tab 07/05/19 08/09/19 History (1,250 mg) tablet Allergies Allergy/AdvReac Type Severity Reaction Status Date / Time diphenhydramine AdvReac Intermediate Other (See Verified 08/06/19 16:07 Comment) latex AdvReac Intermediate Skin Rash Verified 08/06/19 16:07 morphine AdvReac Intermediate Nausea Verified 08/06/19 16:07 Sulfa (Sulfonamide AdvReac Intermediate Bloating Verified 08/06/19 16:07 Antibiotics) Exam Narrative Exam Narrative: She is in no current distress. She is cooperative. Her vital signs documented elsewhere Her chest wall motion is normal. Her lungs are clear. Cardiac exam shows a regular rate and rhythm Her abdomen is soft with no masses. There is no edema in the lower extremities. She is awake, alert and oriented. Results Last Vital Signs Temp 36.8 C 08/09/19 06:37 Pulse 86 08/09/19 06:37 Resp 18 08/09/19 06:37 BP 117/74 08/09/19 06:37 Pulse Ox 95 08/09/19 06:37
[2019-08-09] MEDS: Lactated Ringers 1,000 ML 80 ML IV (07:06)
[2019-08-09] MEDS: ceFAZolin 1 GM/50 ML BAG IVPB (07:33)
[2019-08-09] MEDS: Lidocaine 2% Jelly 6 ML SYR (07:33)
--- NOTE | 2019-08-09 08:02 | W.PM.DSUDISC ---
Discharge Plan Disposition Patient Disposition: HOME Condition: Stable Discharge Details Reason For Visit: surgery Attending Provider: Oscar Porras Primary Care Provider: Rajesh Cruz Home Meds and New Rx's Prescriptions: New oxybutynin chloride 5 mg tablet 5 mg PO BID-TID PRN (Reason: bladder spasms) Qty: 10 RF: 0 oxycodone 5 mg tablet 5 mg PO Q6H PRN (Reason: pain) Qty: 12 RF: 0 No Action calcium carbonate [Calcium 500] 500 mg calcium (1,250 mg) tablet 1,000 mg PO DAILY RF: 0 ascorbic acid (vitamin C) [Vitamin C] 500 MG capsule, extended release 500 mg PO DAILY RF: 0 Atorvastatin Calcium 20 MG tablet 20 mg PO DAILY RF: 0 ibuprofen 400 mg Tablet 400 mg PO PRN PRNRF: 0 aspirin 81 mg Tablet,Delayed Release (Dr/Ec) 81 mg PO DAILY RF: 0 cholecalciferol (vitamin D3) [Vitamin D3] 400 unit Capsule 600 unit PO DAILY RF: 0 Discharge Instructions Additional Instructions: Pt needs to be scheduled for CT urogram - I will place order in outpatient EMR. Please ask my office to arrange and to also schedule appt to see me for same day Needs appt with me in 6 weeks for one dose of Gemcitabine into bladder Stand Alone Forms: [facility] Aug[facility] Pina ([facility]) Activity:: Activity as Tolerated Shower/Bathe:: 24 hours Diet:: As Tolerated Discharge Orders Discharge Orders: Discharge Order (Routine); Ordered 08/09/19 Ordered By: Oscar Porras DS: Diagnosis Discharge Diagnosis (1) Bladder cancer: Status: Chronic
[2019-08-09 08:14] VITALS: BP 99/67; PULSE 83; RESP 14; TEMP 36.6; O2SAT 97
[2019-08-09 08:19] VITALS: BP 103/69; PULSE 75; RESP 11; TEMP 36.6; O2SAT 97
[2019-08-09 08:24] VITALS: BP 98/65; PULSE 77; RESP 14; TEMP 36.6; O2SAT 97
[2019-08-09] MEDS: Phenazopyridine 200 MG TAB PO (09:04)
[2019-08-09 09:15] VITALS: BP 115/85; PULSE 74; RESP 17; TEMP 36.6; O2SAT 99
--- NOTE | 2019-08-10 07:16 | ROE_ITS ---
DATE OF PROCEDURE: August 09, 2019 PREOPERATIVE DIAGNOSIS: Bladder cancer. POSTOPERATIVE DIAGNOSIS: Bladder cancer. PROCEDURE: Cystoscopy, fulguration of bladder lesions. SURGEON: Oscar Porras M.D. ANESTHESIA: General. COMPLICATIONS: None. HISTORY: This is a 63-year-old woman who has a history of urothelial cell carcinoma of the bladder. She was t reated with transurethral resection followed by intravesical gemcitabine. She presents for surveillan ce cystoscopy. OPERATIVE REPORT: The patient was brought to the Operating Room on 08/09/19. After successful induction of general ane sthesia she was placed in the dorsal lithotomy position. Her genitalia was prepped and draped. A #22 Latvian rigid cystoscope was passed through the urethra into the bladder. The urethra and bladde r were inspected using both a 30 and a 70-degree lens. Previously, there was a noninvasive urothelial cell carcinoma at the left trigone and bladder neck ar ea. A scar is identified in this region, but not residual or recurrent tumor. There were a few erythematous patches up toward the dome of the bladder. These were cauterized using a Bugbee electrode. No additional lesions were seen. The bladder was emptied and the cystoscope was withdrawn. We will plan on a maintenance dose of gemcitabine in six weeks, followed by a surveillance cystoscopy in three months. We will also plan to redo upper tract imaging with a CT urogram. CC: Rajesh Cruz DO
== END 2019-08-09 10:26 | disposition home or self-care (01) ==
PROVIDERS: PCP Family Medicine; Visit Provider Urology
PROC: 0TBB8ZZ Excision of Bladder, Via Natural or Artificial Opening Endoscopic (ICD-10-PCS; CPT 52224; principal; 2019-08-09 07:30)
DX: N32.89 Other specified disorders of bladder (principal); Z08 Encounter for follow-up examination after completed treatment for malignant neoplasm; Z85.51 Personal history of malignant neoplasm of bladder
CPT/HCPCS: 52224; NC; J0690; J1100; J1885; J2250; J2405

== ENCOUNTER 2019-09-21 00:27 | Outpatient (CLI) | payer BC, SELFPAY ==
[2019-09-21 08:06] LABS: CREATININE 0.63 mg/dL (0.55-1.02)
[2019-09-21] MEDS: Omnipaque 350 MG/ML 100 ML BTL IJ (08:29)
--- NOTE | 2019-09-21 08:30 | DI.CT_ITS ---
EXAM: CT ABDOMEN PELVIS WO/W CLINICAL HISTORY: BLADDER CA,C67.9,EVALUATE UPPER TRACTS TECHNIQUE: CT examination of the abdomen and pelvis was performed utilizing CT urogram protocol with intravenous infusion of 100 cc of Omnipaque 350. FINDINGS: Noncontrast imaging shows a tiny nonobstructing left renal calculus. A couple of small left renal cy sts are noted as well. Collecting systems and ureters are unremarkable in appearance. No evidence o f hydronephrosis or urinary tract obstruction. Urinary bladder appears intact as visualized. Images obtained through the lung bases are unremarkable. Liver and spleen appear normal. No biliary dilatation. Unremarkable appearance of the gallbladder. Adrenals appear normal bilaterally. No significant abdominal wall hernia seen. No abdominal or pelvic adenopathy. Retail Account [employer] structures appear intact. Appendix not specifically identified but there is no evidence of appendicitis or diverticul itis. Abdominal aorta is of normal diameter and no major vascular abnormality is seen. IMPRESSION: Tiny nonobstructing left renal calculus. No other significant urinary tract abnormality identified.
== END 2019-09-21 00:47 ==
PROVIDERS: PCP Family Medicine; Visit Provider Urology
DX: C67.9 Malignant neoplasm of bladder, unspecified (principal); N20.0 Calculus of kidney; N28.1 Cyst of kidney, acquired
CPT/HCPCS: 74178; 82565; J3490

== ENCOUNTER 2019-12-07 06:58 | Day surgery (SDC) | payer BC, SELFPAY ==
--- NOTE | 2019-12-07 06:48 | W.PM.HP.N ---
Date of service: 12/07/19 Assessment and Plan Assessment and plan (1) Bladder cancer: Status: Chronic Assessment and plan: We will proceed with cystoscopy, biopsy/resection/fulguration of tumor sites. We will plan to instill a dose of mitomycin-C into the bladder postoperatively. I will plan to place a belladonna and opium suppository intraoperatively to help with post-operative discomfort. History of Present Illness History of Present Illness Chief Complaint: Bladder cancer Narrative: This is a 63-year-old woman who has a history of urothelial cell carcinoma of the bladder. Her tumors have all been low-grade and noninvasive. Because of frequent recurrences, she was given an induction course of intravesical gemcitabine. She underwent surveillance cystoscopy in my office in the past few weeks. She had multiple small recurrent tumors. She has not had any gross hematuria, but she has had bladder discomfort. She presents for cystoscopy with transurethral resection/fulguration of bladder tumors. Review of Systems Narrative: No fevers or chills No vision change or dysphasia No diabetes or thyroid Chronic shortness of breath but no new cough, sputum production or hemoptysis No chest pain or palpitations No nausea, vomiting, hepatitis, ulcers, jaundice. Hx pancreatitis ? related to GB disease. 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 1995 in [place], [place] related to injury during laparoscopy History of carpal tunnel surgery of right wrist (Acute) History of laparoscopy (Chronic) History of rotator cuff surgery (Acute) Right Family History (Updated 07/05/19 @ 09:54 by Sailaja Araiza NP) Father COPD (chronic obstructive pulmonary disease) Mother Brain aneurysm Social History (Updated 07/05/19 @ 09:29 by Shirley Live RN) Smoking/Tobacco Use Status: Current every day Tobacco Type: cigarettes Years smoked: 45 Alcohol Intake: former Details: weekends Drug use: Daily Substance use type: marijuana Details: Pt states edibles &/or smoke nightly. Seatbelt use: always Do you feel safe at home: Yes Additional Social history: Pt states she has no relationship. History History 4 Para 0 Hx # Term Pregnancies Multiple births Hx # Pregnancies Ectopic pregnancies AB induced Hx Number of Living Children AB spontaneous Meds Home Medications and Allergies Home Medications Medication Instructions Recorded Confirmed Type ascorbic acid (vitamin C) [Vitamin 500 mg PO DAILY 02/28/17 12/07/19 History C] Atorvastatin Calcium 20 mg PO DAILY tab-cap 04/19/18 12/07/19 History ibuprofen 400 mg PO PRN PRN 12/12/18 12/07/19 History aspirin 81 mg PO DAILY 04/03/19 12/05/19 History cholecalciferol (vitamin D3) 600 unit PO DAILY 04/03/19 12/07/19 History [Vitamin D3] calcium carbonate 500 mg calcium 1,000 mg PO DAILY tab 07/05/19 12/07/19 History (1,250 mg) tablet oxybutynin chloride 5 mg PO BID-TID PRN #10 tab 08/09/19 12/07/19 Rx hydroxyzine pamoate 25 mg capsule 25 mg PO TID PRN #15 cap 12/03/19 12/07/19 Rx pantoprazole 40 mg PO DAILY 12/05/19 12/07/19 History Allergies Allergy/AdvReac Type Severity Reaction Status Date / Time diphenhydramine AdvReac Intermediate Other (See Verified 12/07/19 07:01 Comment) latex AdvReac Intermediate Skin Rash Verified 12/07/19 07:01 morphine AdvReac Intermediate Nausea Verified 12/07/19 07:01 Sulfa (Sulfonamide AdvReac Intermediate Bloating Verified 12/07/19 07:01 Antibiotics) Exam Narrative Exam Narrative: She is in no current distress. She is cooperative. Her vital signs are documented elsewhere Her neck is supple with no mass Her lungs are clear Cardiac exam shows a regular rate and rhythm Her abdomen is soft with no guarding or rebound tenderness She is awake and alert COVID-19 Screening Traveled to [place] from one of the affected countries or regions?: NO
[2019-12-07 07:00] VITALS: BP 112/80; PULSE 86; RESP 18; TEMP 36.8; O2SAT 94
[2019-12-07] MEDS: Lactated Ringers 1,000 ML 80 ML IV (07:35)
[2019-12-07] MEDS: ceFAZolin 1 GM/50 ML BAG IVPB (07:52)
[2019-12-07] MEDS: Lidocaine 2% Jelly 6 ML SYR (08:07)
--- NOTE | 2019-12-07 08:20 | BLADDER_PTH ---
PATIENT: MAYELIN LEIGH LOC: [facility] U#:[id number] AGE/SX: 63/F ROOM: RE12/07/[address]: Oscar Porras MD : [id number] BED: DIS: 12/07/2019 SPEC #: [id number] RECD: 12/07/19 12:30 STATUS: TERESITA REKarie #: [id number] ABBY: 12/07/19 08:[address]: sOcar Porras DEPT: Surgical Specimen RECD BY: Yonis Mills ENTERED: 12/07/19 12:42 SP TYPE: Bladder OTHR DR: Rajesh Cruz Tissues: 1 - BLADDER BIOPSY Procedures: GROSS AND MICRO LEVEL 4 IMMUNOPEROXIDASE STAIN Comments: [id number]
--- NOTE | 2019-12-07 08:31 | W.PM.DSUDISC ---
Discharge Plan Disposition Patient Disposition: HOME Condition: Stable Discharge Details Reason For Visit: CYSTOSCOPE Attending Provider: Oscar Porras Primary Care Provider: Rajesh Cruz Home Meds and New Rx's Prescriptions: No Action hydroxyzine pamoate [Vistaril] 25 mg capsule 25 mg PO TID PRN (Reason: bladder pain) Qty: 30 RF: 0 oxybutynin chloride 5 mg tablet 5 mg PO BID-TID PRN (Reason: bladder spasms) Qty: 20 RF: 0 oxycodone 5 mg tablet 5 - 10 mg PO Q6H MDD 40 mg PRN (Reason: pain) Qty: 30 RF: 0 calcium carbonate [Calcium 500] 500 mg calcium (1,250 mg) tablet 1,000 mg PO DAILY RF: 0 ascorbic acid (vitamin C) [Vitamin C] 500 MG capsule, extended release 500 mg PO DAILY RF: 0 Atorvastatin Calcium 20 MG tablet 20 mg PO DAILY RF: 0 ibuprofen 400 mg Tablet 400 mg PO PRN PRNRF: 0 pantoprazole 40 mg Tablet,Delayed Release (Dr/Ec) 40 mg PO DAILY RF: 0 aspirin 81 mg Tablet,Delayed Release (Dr/Ec) 81 mg PO DAILY RF: 0 cholecalciferol (vitamin D3) [Vitamin D3] 400 unit Capsule 600 unit PO DAILY RF: 0 Discharge Instructions Additional Instructions: allow Mitomycin C to remain in bladder for 1 to 2 hours then drain bladder and remove catheter - drain bladder sooner prn pain F/U phone call @ 1 week for pathology results multiple scripts (pain meds and bladder relaxers) sent to [facility] Activity:: no lifting/straining for 1 week Shower/Bathe:: 24 hours Diet:: As Tolerated Discharge Orders Discharge Orders: Discharge Order (Routine); Ordered 12/07/19 Ordered By: Oscar Porras DS: Diagnosis Discharge Diagnosis (1) Bladder cancer: Status: Chronic
[2019-12-07] MEDS: Phenazopyridine 200 MG TAB PO (08:50)
--- NOTE | 2019-12-07 08:54 | ROE_ITS ---
Date of service: 12/07/19 Time of Service: 08:54 Operative Note Operative Note DATE OF PROCEDURE: 12/07/19 PRE-OP DIAGNOSIS: Bladder cancer POST-OP DIAGNOSIS: same PROCEDURE: Cystoscopy, transurethral resection of small bladder tumor, fulguration of additional bladder tumors, instillation of mitomycin-C into the bladder SURGEON: Oscar Porras ANESTHESIA: MAC ESTIMATED BLOOD LOSS: 100 PATHOLOGY: other (Bladder tumor) COMPLICATIONS: None Patient was transported to: same day Patient's condition: stable Indications: This is a 63-year-old woman who has a history of recurrent urothelial cell carcinoma of the bladder. Her initial occurrence was by the left ureteral orifice. She has had multiple recurrences since then. On each occurrence, her pathology demonstrates low-grade noninvasive urothelial cell carcinoma. Because of her recurrences, she did have an induction series of gemcitabine instilled into her bladder. Her most recent surveillance cystoscopy shows multiple small recurrences. She presents for transurethral resection/fulguration of her tumors and instillation of mitomycin-C into the bladder Findings: Three papillary bladder tumors in the following locations: 1. Adjacent to the left ureteral orifice 2. Left lateral bladder wall 3. Left anterior bladder wall Procedure Description: The patient was brought to the operating room on 12/07/2019. She was given monitored anesthesia care and placed in the dorsal lithotomy position. Her genitalia was prepped and draped. 2% Xylocaine jelly was instilled into the urethra to act as a local anesthetic. A 24 Palestinian resectoscope sheath was passed through the urethra into the bladder. We used a 30 degree lens in the visual obturator to inspect the bladder mucosa. The right ureteral orifice appeared normal. There was a less than 2 cm papillary lesion adjacent to the left ureteral orifice. This lesion appeared more posterior and medial compared to the orifice. 2 additional less than 1 mm papillary lesions were identified on the left side of the bladder. One was on the left lateral wall and one was on the left anterior wall. The remainder the bladder appeared normal. We then used the bipolar cautery and resectoscope loop to remove the lesion adjacent to the left ureteral orifice. The resected tissue was evacuated and sent to pathology for permanent section. We cauterized the area while attempting to minimize any damage to the left ureteral orifice. We then cauterized the two visible tumors on the left bladder wall. Once hemostasis had been achieved, the resectoscope was removed. An 18 Palestinian [place] catheter was passed through the urethra into the bladder. The catheter balloon was inflated with 10 cc of sterile water. A 40 mg dose of mitomycin-C was instilled into the bladder. The solution was mixed in 40 mL of saline. The Cleveland catheter was clamped to allow the mitomycin-C to remain in the bladder. The patient was then transferred back to the outpatient area. We will plan on leaving the mitomycin in her bladder for 1 to 2 hours. The patient tolerated this procedure well. There were no complications. She was taken to the outpatient area in stable condition.
[2019-12-07 09:21] VITALS: BP 131/83; PULSE 80; RESP 19; TEMP 36.6; O2SAT 98
== END 2019-12-07 11:22 | disposition home or self-care (01) ==
PROVIDERS: PCP Family Medicine; Visit Provider Urology
PROC: 0TBB8ZZ Excision of Bladder, Via Natural or Artificial Opening Endoscopic (ICD-10-PCS; CPT 52234; principal; 2019-12-07 08:00)
DX: C67.6 Malignant neoplasm of ureteric orifice (principal); F17.210 Nicotine dependence, cigarettes, uncomplicated
CPT/HCPCS: 52234; 51720; 88305; NC; 88307; 88342; 88361; J0690; J1885; J2001; J2250; J2405; J9280

== ENCOUNTER 2020-02-28 09:59 | Outpatient (CLI) | payer MEDICAID, SELFPAY ==
--- NOTE | 2020-02-28 | DI.US_ITS ---
EXAM: US RENAL CLINICAL HISTORY: S/P TURBT W/ RESECTION OF LEFT UO, ? HYDRONEPHROSIS. TECHNIQUE: Patel scale, color and spectral Doppler were used. COMPARISON: CT CT ABD/PELVIS WO CONTRAST from 12/09/2019 FINDINGS: Renal size in cm: Right: 9.2 left: 10.9 Echogenicity: Normal Hydronephrosis: There is mild left hydronephrosis which appears less prominent when compared with the previous CT. No right hydronephrosis is seen. Cyst or mass: No Nephrolithiasis: No Bladder:There is irregularity along the left lateral bladder wall near the ureterovesical junction. Findings could be postsurgical. Prevoid vol: 165 cc Postvoid vol:33 cc Both ureteral jets were visualized. IMPRESSION: Mild left hydronephrosis. Bladder wall irregularities could be postsurgical. Residual tumor not ex cluded. DATA REPOSITORY:
== END 2020-02-28 10:19 ==
PROVIDERS: PCP Family Medicine; Visit Provider Urology
DX: N13.30 Unspecified hydronephrosis (principal); N32.89 Other specified disorders of bladder
CPT/HCPCS: 76770

== ENCOUNTER 2020-04-14 07:15 | Outpatient (CLI) | payer MEDICAID, SELFPAY ==
[2020-04-15 23:47] LABS: COVID-19 RT-PCR Result NEGATIVE (Negative)
== END 2020-04-14 07:35 ==
PROVIDERS: PCP Family Medicine; Visit Provider Urology
DX: Z11.59 Encounter for screening for other viral diseases (principal)
CPT/HCPCS: U0003

== ENCOUNTER 2020-07-28 00:33 | Outpatient (CLI) | payer MEDICAID, SELFPAY ==
--- NOTE | 2020-07-28 | DI.US_ITS ---
EXAM: US RENAL CLINICAL HISTORY: URINARY BLADDER CA,C67.9,S/P LT URETERAL REIMPLANT/STENT. TECHNIQUE: Patel scale, color and spectral Doppler were used. COMPARISON: US US RENAL from 02/28/2020 FINDINGS: KIDNEYS: Right kidney measures 10.7 centimetres in length. Normal cortical thickness and normal lindsey icomedullary differentiation. No cysts nor solid lesions seen. No calculi nor hydronephrosis. Left kidney measures 9.7 centimetres in length and also exhibits normal cortical thickness and normal corticomedullary differentiation. No calculi nor hydronephrosis. There is an 8 x 7 millimeters cys t in the left kidney. No solid lesions. Vascular flow is demonstrated in both kidneys. URINARY BLADDER: Bladder:Prevoid volume 32 cc. Bladder not adequately distended for evaluation. Bladder wall thickne ss 3.5 millimeters. \ IMPRESSION: 1. Small 8 by 7 millimeter cyst in the left kidney. No other significant focal findings in either ki dney. No hydronephrosis. Cortical thickness is normal bilaterally. 2. Inadequate examination of the urinary bladder due to bladder not adequately distended, exhibitin g volume of only 32 cc. DATA REPOSITORY:
== END 2020-07-28 00:53 ==
PROVIDERS: PCP Family Medicine; Visit Provider Urology
DX: C67.9 Malignant neoplasm of bladder, unspecified (principal); N28.1 Cyst of kidney, acquired
CPT/HCPCS: 76770